=== PATIENT | male | born 2000 | race Two or more races ===

== ENCOUNTER 2023-09-24 01:38 | Emergency (ER) | payer OTHER ==
[~2023-09-24] VITALS: Ht 175.3 cm; Wt 100.0 kg
[2023-09-24] MEDS ORDERED: PRED20TA2 PO (02:40)
[2023-09-24] MEDS ORDERED: ALBU108A5 IN (02:40)
[2023-09-24] MEDS: predniSONE 20 MG TAB PO ONE (02:51)
[2023-09-24] MEDS: IPRATROPIUM BROM 0.5 MG/2.5ML INH SOL NEB ONE (02:52)
[2023-09-24] MEDS: ALBUTEROL SULF 2.5 MG/0.5ML(0.5%) NEB SOLN NEB ONE (02:52)
[2023-09-24 03:00] VITALS: BP 124/73; PULSE 90; RESP 16; TEMP 98; O2SAT 96
== END 2023-09-24 03:09 | disposition home or self-care (01) ==
LOC: ER 01:38
DX: R06.00 Dyspnea, unspecified (principal)
CPT/HCPCS: 71045; 94640; 99283; J7512; J7644